=== PATIENT | female | born 1975 | race Caucasian/White ===

== ENCOUNTER 2021-02-22 08:11 | Day surgery (SDC) | payer OTHER ==
[2021-02-22] VITALS (301 sets, daily range): BP systolic 113–142; BP diastolic 68–94; PULSE 57–85; TEMP 98.6–99.2; O2SAT 83–99
[~2021-02-22] VITALS: Ht 160 cm; Wt 79.3 kg
[~2021-02-22 08:11] MED LIST: DESYREL 50MG50 MG PO; MOBIC15 MG PO; NEURONTIN300 MG/CAP PO; PERCOCET 325 MG1 TAB PO
[2021-02-22] MEDS ORDERED: ASPIRIN E.C. 8181 MG PO (09:15)
[2021-02-22] MEDS ORDERED: NEURONTIN300 MG/CAP PO (09:16)
[2021-02-22] MEDS ORDERED: LIPITOR 80MG80 MG PO (09:16)
[2021-02-22] MEDS ORDERED: FORTAMET500 M1 PO (09:17)
[2021-02-22] MEDS ORDERED: NITROSTAT0.4 MG/TAB SL (09:19)
[2021-02-22] MEDS ORDERED: EFFIENT10 MG PO (09:19)
[2021-02-22 09:34] LABS: HEMATOCRIT 37.3 % (37.0-47.0); HEMOGLOBIN 12.5 g/dl (12.5-16.0); MEAN CELL VOLUME 89 fl (80.0-100.0); MEAN CORPUSCULAR HEMOGLOBIN 30 pg (27.0-31.0); MEAN CORPUSCULAR HGB CONC 34 g/dl (33.0-37.0); PLATELET COUNT 306 K/mm3 (130-400); RED BLOOD COUNT 4.17 M/mm3 (4.10-5.30); REDCELL DISTRIBUTION WIDTH-CV 13.2 % (11.5-14.5)
[2021-02-22 09:43] LABS: PROTHROMBIN TIME 11.2 SECONDS (9.7-12.8)
[2021-02-22 09:46] LABS: PARTIAL THROMBOPLASTIN TIME 29.1 SECONDS (26.0-37.0)
[2021-02-22 09:54] LABS: ALBUMIN 3.9 gm/dL (3.5-5.0); BILIRUBIN,TOTAL 0.5 mg/dL (0.2-1.2); CALCIUM 9.5 mg/dL (8.4-10.2); CREATININE, serum 0.74 mg/dL (0.57-1.11); MAGNESIUM 2.1 mg/dL (1.6-2.6); POTASSIUM 3.9 mmol/L (3.5-4.5); TOTAL PROTEIN 7.7 gm/dL (6.2-8.1)
--- NOTE | 2021-02-22 12:30 | NUR ---
PT RECIEVED FROM SURGICAL SERVICES ASSISTANT. HOOKED UP TO ICU MONITORING, ORIENTED TO ROOM. POST SURGICAL SERVICES ASSISTANT VITALS INITIATED, PT STABLE. WILL CONTINUE TO MONITOR.
--- NOTE | 2021-02-22 22:54 | NUR ---
TR BAND RELEASE- BANDAIDE APPLIED, NO BLEEDING OR HEMOTOMA. ELEVATED ON PILLOW.
--- NOTE | 2021-02-22 22:58 | NUR ---
ALERT AND X4. NITRO GTT GOING PER ORDER. DENIES SOA, CHEST PAIN OR DIZZY. PAIN IN NECK AND BACK. PERCOCET PER ORDER. PRN BENEDRYL FOR SLEEP . PM MEDS GIVEN. SNACKS PROVIDED. NS ORDER COMPLETED. POC DISCUSSED. CALL LIGHT WI REACH. NEEDS MET.
[2021-02-23] VITALS (266 sets, daily range): BP systolic 109–127; BP diastolic 7–81; PULSE 69–85; TEMP 98.5–98.7; O2SAT 81–100
[2021-02-23 04:17] LABS: BASO # 0.1 K/mm3 (0.0-0.2); BASO % 0.9 % (0.0-2.0); EOS # 0.2 K/mm3 (0.0-0.7); EOS % 2.2 % (0-4.0); GRAN % 66.3 % (42.2-75.2); HEMOGLOBIN 12.2 g/dl (12.5-16.0); LYMPH # 1.9 K/mm3 (1.2-3.4); LYMPH % 20.4 % (20.0-51.0); MEAN CELL VOLUME 89 fl (80.0-100.0); MEAN CORPUSCULAR HEMOGLOBIN 30 pg (27.0-31.0); MEAN CORPUSCULAR HGB CONC 34 g/dl (33.0-37.0); MONO # 0.9 K/mm3 (0.1-0.6); MONO % 9.9 % (1.7-9.3); PLATELET COUNT 278 K/mm3 (130-400); RED BLOOD COUNT 4.07 M/mm3 (4.10-5.30); REDCELL DISTRIBUTION WIDTH-CV 13.2 % (11.5-14.5)
[2021-02-23 04:21] LABS: HEMATOCRIT 36.3 % (37.0-47.0)
[2021-02-23 04:39] LABS: CALCIUM 9.1 mg/dL (8.4-10.2); CREATININE, serum 0.78 mg/dL (0.57-1.11); POTASSIUM 3.6 mmol/L (3.5-4.5)
--- NOTE | 2021-02-23 06:06 | NUR ---
RESTED THROUGH THE NIGHT WITHOUT INCIDENT. NO C.O CHEST PAIN OR NAUSEA. RT WRIST SITE C/D NO HEMOTOMA. NITRO GOING AT 3ML/HR. CALL LIGHT WI REACH.
--- NOTE | 2021-02-23 08:52 | NUR ---
MISS KINGSLEY IS RESTING IN BED AND ORDERED OWN BREAKFAST. SHE COMPLAINED ABOUT HER CONTACTS AND THAT THE LEFT EYE FEELS LIKE IT HAS BEEN SCRATCHED. I PROVIDED SOME SALINE FLUSHES FOR HER EYES AND A WARM COMPRESS. HER LIGHTS TO HER ROOM IS OFF REQUESTED.
[2021-02-23] MEDS ORDERED: TOPROL XL 25MG25 MG PO (09:22)
--- NOTE | 2021-02-23 09:32 | NUR ---
AT [address] MICHEL ORDERS. WILL MONITOR.
--- NOTE | 2021-02-23 09:58 | NUR ---
Initial visit; Patient resting, Field Crop Grower left card to inform patient of the availability of spiritual care in the ICU.
--- NOTE | 2021-02-23 10:25 | NUR ---
Clay Preparation Supervisor met with patient to discuss discharge planning. Patient states she is single and lives alone in [place], self reporting she is fully independent with ADLs and no DME's. Her PCP is Dr. Dwyer in [place] and she receives her prescriptions from [facility] in [place]. Patient does not have [facility]PO[facility] and is not interested at this time as she is being discharged home.
--- NOTE | 2021-02-23 10:47 | NUR ---
MISS VERGARA HAS BEEN DISCHARGED TO HOME BY FATHER PICKING HER UP. SHE WAS WALKED OUT TO THE [facility] WITHOUT ISSUE. PATIENT WAS EDUCATED ON VISIT AND TOLD TO COME BACK IF SYMPTOMS WORSENED. PATIENT LEFT WITH ALL HER BELONGINGS.
== END 2021-02-23 11:14 | disposition home or self-care (01) ==
LOC: COL.CAR 08:11 → ICU 12:10 → COL.CAR 02-23 11:14
PROVIDERS: Internal Medicine Cardiovascular Disease
DX: I25.10 Atherosclerotic heart disease of native coronary artery without angina pectoris (principal); I10 Essential (primary) hypertension; R73.03 Prediabetes; Z95.1 Presence of aortocoronary bypass graft
CPT/HCPCS: OP; C1725; C1769; C1874; C1887; C9600; J0583; J1644; J2250; J3010